=== PATIENT | male | born 1940 | race Caucasian/White ===

== ENCOUNTER 2022-03-27 10:29 | Emergency (ER) | payer MEDICARE, BC ==
[2022-03-27] MEDS ORDERED: NEURONTIN100 M1 (10:38)
[2022-03-27] MEDS ORDERED: TRAMADOL 50 MG TAB (10:38)
[2022-03-27] MEDS ORDERED: SIMVASTATIN5 M1 (10:39)
[2022-03-27] MEDS ORDERED: FLOMAX0.4 MG PO (10:39)
[2022-03-27] MEDS ORDERED: VENLAFAXINE HYD25 MG (10:39)
[2022-03-27 11:20] LABS: BASO # 0.03 K/mm3 (0.02-0.10); HEMATOCRIT 45.3 % (42.0-52.0); HEMOGLOBIN 14.4 g/dL (13.5-18.0); LYMPH# 0.78 K/mm3 (1.50-4.00); MEAN CELL VOLUME 99 fl (78-100); MEAN CORPUSCULAR HEMOGLOBIN 31 pg (27-31); MEAN CORPUSCULAR HGB CONC 32 g/dL (33-37); MEAN PLATELET VOLUME 10.6 fl (7.4-10.4); MONO # 0.47 K/mm3 (0.20-0.80); NEU # 8.04 K/mm3 (1.40-6.50); PLATELET COUNT 156 K/mm3 (130-400); RED BLOOD COUNT 4.59 M/mm3 (4.20-5.60); RED CELL DISTRIBUTION WIDTH 12.6 % (11.5-14.5); WHITE BLOOD COUNT 9.3 K/mm3 (4.8-10.8)
[2022-03-27 11:23] LABS: ALBUMIN 4.7 g/dL (3.4-4.8)
[2022-03-27 11:24] LABS: POTASSIUM 4.3 mmol/L (3.5-5.1); SODIUM 144 mmol/L (136-145)
[2022-03-27 11:25] LABS: CALCIUM 9.9 mg/dL (8.3-10.5)
[2022-03-27 11:26] LABS: GLUCOSE 135 mg/dL (75-110); TOTAL PROTEIN 7.2 g/dL (6.2-8.1)
[2022-03-27 11:27] LABS: CARBON DIOXIDE 24 mmol/L (23-31)
[2022-03-27 11:31] LABS: AST-SGOT 11 U/L (5-34)
[2022-03-27 11:33] LABS: ALT/SGPT 17 U/L (0-55)
[2022-03-27 11:41] LABS: TOTAL BILIRUBIN 0.5 mg/dL (0.2-1.2)
[2022-03-27] MEDS ORDERED: ZOFRAN ODT4 MG PO (12:51)
[2022-03-27] MEDS ORDERED: NORCO 325 MG-51 TA1 PO (12:51)
[2022-03-27 13:14] VITALS: BP 184/88
== END 2022-03-27 13:14 | disposition home or self-care (01) ==
LOC: ED 10:29
PROVIDERS: Nurse Practitioner
DX: N20.2 Calculus of kidney with calculus of ureter (principal); Z87.891 Personal history of nicotine dependence; Z28.310 Unvaccinated for COVID-19
CPT/HCPCS: J1885; J2405; J7030